=== PATIENT | male | born 1960 | race Caucasian/White ===

== ENCOUNTER → 2021-06-09 | Outpatient (CLI) | payer OTHER | LOC: WCC 13:00 | DX: T25.221A Burn of second degree of right foot, initial encounter (principal); T31.0 Burns involving less than 10% of body surface; I10 Essential (primary) hypertension; T14.8XXA Other injury of unspecified body region, initial encounter; L08.9 Local infection of the skin and subcutaneous tissue, unspecified; R73.01 Impaired fasting glucose; E78.00 Pure hypercholesterolemia, unspecified; X58.XXXA Exposure to other specified factors, initial encounter; Y92.9 Unspecified place or not applicable; Z88.5 Allergy status to narcotic agent ==

== ENCOUNTER → 2021-06-16 | Outpatient (CLI) | payer OTHER | END | disposition home or self-care (01) | LOC: WCC 08:08 | DX: T25.221A Burn of second degree of right foot, initial encounter (principal); I10 Essential (primary) hypertension; T14.8XXA Other injury of unspecified body region, initial encounter; L08.9 Local infection of the skin and subcutaneous tissue, unspecified; R73.01 Impaired fasting glucose; G47.30 Sleep apnea, unspecified; E78.00 Pure hypercholesterolemia, unspecified; X58.XXXA Exposure to other specified factors, initial encounter ==

== ENCOUNTER → 2021-06-16 | Outpatient (CLI) | payer OTHER | LOC: EXRD 14:00 | DX: I10 Essential (primary) hypertension (principal); T25.021S Burn of unspecified degree of right foot, sequela; T14.8XXA Other injury of unspecified body region, initial encounter; L08.9 Local infection of the skin and subcutaneous tissue, unspecified; R73.01 Impaired fasting glucose | CPT/HCPCS: 93925 ==

== ENCOUNTER → 2021-06-24 | Outpatient (CLI) | payer OTHER | LOC: WCC 08:38 | DX: T25.221D Burn of second degree of right foot, subsequent encounter (principal); T31.0 Burns involving less than 10% of body surface; I10 Essential (primary) hypertension; R73.01 Impaired fasting glucose; X08.8XXD Exposure to other specified smoke, fire and flames, subsequent encounter ==

== ENCOUNTER → 2021-06-24 | Outpatient (CLI) | payer BC | LOC: LAB 15:41 | DX: R73.01 Impaired fasting glucose (principal); I10 Essential (primary) hypertension; T25.021S Burn of unspecified degree of right foot, sequela; T14.8XXD Other injury of unspecified body region, subsequent encounter; L08.9 Local infection of the skin and subcutaneous tissue, unspecified | CPT/HCPCS: 36415; 83036 ==

== ENCOUNTER → 2021-07-01 | Outpatient (CLI) | payer BC | LOC: WCC 07:47 | DX: T25.221D Burn of second degree of right foot, subsequent encounter (principal); T31.0 Burns involving less than 10% of body surface; I10 Essential (primary) hypertension; T14.8XXD Other injury of unspecified body region, subsequent encounter; L08.9 Local infection of the skin and subcutaneous tissue, unspecified; R73.01 Impaired fasting glucose; E78.00 Pure hypercholesterolemia, unspecified; T65.891D Toxic effect of other specified substances, accidental (unintentional), subsequent encounter ==

== ENCOUNTER → 2021-07-09 | Outpatient (CLI) | payer BC | LOC: WCC 07:45 | DX: T25.221D Burn of second degree of right foot, subsequent encounter (principal); T31.0 Burns involving less than 10% of body surface; I10 Essential (primary) hypertension; T14.8XXD Other injury of unspecified body region, subsequent encounter; L08.9 Local infection of the skin and subcutaneous tissue, unspecified; R73.01 Impaired fasting glucose; X12.XXXD Contact with other hot fluids, subsequent encounter ==

== ENCOUNTER → 2021-07-17 | Outpatient (CLI) | payer BC | LOC: WCC 07:15 | DX: L08.9 Local infection of the skin and subcutaneous tissue, unspecified (principal); T14.8XXD Other injury of unspecified body region, subsequent encounter; T25.021S Burn of unspecified degree of right foot, sequela; I10 Essential (primary) hypertension; R73.01 Impaired fasting glucose; E78.00 Pure hypercholesterolemia, unspecified; G47.30 Sleep apnea, unspecified | CPT/HCPCS: G0463 ==